=== PATIENT | female | born 1950 | race Two or more races ===

== ENCOUNTER 2018-04-09 01:54 | Emergency (ER) | payer MEDICARE ==
[~2018-04-09] VITALS: Ht 157.5 cm; Wt 47.6 kg
--- NOTE | 2018-04-09 02:01 | NUR ---
Note undone in EDM - 04/09/18 at 0230 by TIARRA TO BED 3 BIB PARAMEDICS C/O GENERALIZED WEAKNESS X 30 MIN. 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 PLACE PT ON CARDAIC MONITORING, CONTINUOUS POX. PENDING ER MD ISRAEL.
--- NOTE | 2018-04-09 02:01 | NUR ---
TO BED 3 BIB PARAMEDICS C/O GENERALIZED WEAKNESS X 30 MIN. PT REPORT THAT SHE WAS HAVING A HARD TIME GETTING OUT OF BED, PT REPORTS HX OF CVA WITH R SIDED CVA. PLACE PT ON CARDAIC MONITORING, CONTINUOUS POX. PENDING ER MD ISRAEL.
--- NOTE | 2018-04-09 02:05 | NUR ---
STARTED SL 18G TO LAC, BLOOD DRAWN AND SENT TO LAB.
--- NOTE | 2018-04-09 02:06 | NUR ---
PT AT BEDSIDE AND REPORTS THAT HE DOES NOT NOTICE AND NEW DEFICITS BUT HE WAS CONCERNED THAT SHE IS HAVE ANOTHER STROKE AND CALLED 911 JUST TO MAKE SURE.
--- NOTE | 2018-04-09 02:09 | NUR ---
SYMONE INTERIANO AT BEDSIDE TO [facility].
--- NOTE | 2018-04-09 02:34 | NUR ---
PT TRANSPORTED TO RADIOLOGY FOR CT HEAD.
[2018-04-09 02:44] LABS: BASOPHILS # (AUTO) 0.1 /CMM (0.0-0.2); BASOPHILS % (AUTO) 1.1 % (0.0-2.0); EOSINOPHILS % (AUTO) 2.3 % (0.0-6.0); HEMATOCRIT 40 % (33-45); HEMOGLOBIN 13.2 g/dL (11.5-14.8); LYMPHOCYTES # (AUTO) 2.1 /CMM (0.8-4.8); LYMPHOCYTES % (AUTO) 40.7 % (20.0-44.0); MEAN CORPUSCULAR HGB CONC 33 g/dl (31.0-36.0); MEAN CORPUSCULAR VOLUME 99 fL (82-100); MONOCYTES # (AUTO) 0.5 /CMM (0.1-1.30); MONOCYTES % (AUTO) 9.9 % (2.0-12.0); NEUTROPHILS # (AUTO) 2.4 /CMM (1.8-8.9); PLATELET COUNT (AUTO) 141 /CMM (150-450); RED BLOOD CELL COUNT(AUTO) 4.05 MIL/uL (4.0-5.2); WHITE BLOOD COUNT (AUTO) 5.2 K/uL (4.3-11.0)
[2018-04-09 02:54] LABS: CALCIUM, SERUM 8.4 mg/dL (8.5-10.1); CARBON DIOXIDE 26 mmol/L (21-32); CHLORIDE 107 mmol/L (98-107); CREATININE 0.7 mg/dL (0.6-1.3); GLUCOSE 131 mg/dL (74-106); POTASSIUM 3.8 mmol/L (3.5-5.1); SODIUM SERUM 142 mmol/L (136-145); UREA NITROGEN, BLOOD 17 mg/dL (7-18)
--- NOTE | 2018-04-09 04:06 | NUR ---
ER MD AT BEDSIDE TALKING TO PT REGARDING LAB RESULTS, CT AND HOSPITAL ADMISSION. PT AND PT REFUSE HOSPITAL ADMISSION AND WANTS TO SIGN AGAINST MEDICAL ADVICE. ALL RISKS EXPLAINED BY ER MD INCLUDING . PT AND PT VERBALIZE UNDERSTANDING AND STILL WANTS TO SIGN OUT AGAINST MEDICAL ADVICE.
[2018-04-09] MEDS ORDERED: ASPIRIN 325 MG TABLET ONE (04:11)
--- NOTE | 2018-04-09 04:16 | NUR ---
IV removed. Catheter intact and site benign. Pressure and 4x4 applied to site. No bleeding noted.
[2018-04-09 04:17] VITALS: BP 146/75
[2018-04-09] MEDS ORDERED: ASPIRIN 325 MG TABLET PO ONE (04:30)
== END 2018-04-09 04:41 | disposition home or self-care (01) ==
LOC: ER 01:58
DX: G45.9 Transient cerebral ischemic attack, unspecified (principal); I25.10 Atherosclerotic heart disease of native coronary artery without angina pectoris; I10 Essential (primary) hypertension; E78.5 Hyperlipidemia, unspecified; I48.91 Unspecified atrial fibrillation; R53.1 Weakness; R94.31 Abnormal electrocardiogram [ECG] [EKG]; Z95.1 Presence of aortocoronary bypass graft; Z95.0 Presence of cardiac pacemaker
CPT/HCPCS: 36415; 70450; 71045; 80048; 84484; 85025; 85730; 93005; 99284; A4606; Z7610